=== PATIENT | male | born 1995 | race Caucasian/White ===

== ENCOUNTER 2024-07-20 12:10 | Emergency (ER) | payer MEDICAID ==
[~2024-07-20] VITALS: Ht 190.5 cm; Wt 83.9 kg
[2024-07-20 12:23] VITALS: BP 101/54; RESP 16; TEMP 98.7; O2SAT 100
[2024-07-20 12:27] VITALS: PULSE 97; O2SAT 100
== END 2024-07-20 16:52 | disposition left against medical advice (07) ==
LOC: ER 12:10
DX: H92.09 Otalgia, unspecified ear (principal); Z53.21 Procedure and treatment not carried out due to patient leaving prior to being seen by health care provider